=== PATIENT | female | born 1985 | race Caucasian/White ===

== ENCOUNTER 2018-07-05 05:35 | Emergency (ER) | payer OTHER ==
[~2018-07-05] VITALS: Ht 160 cm; Wt 58.5 kg
[~2018-07-05 05:35] MED LIST: ASPI-667 PO; CLIN300C8 PO; MUPI22OI2 TP; NICO-449 TP
[2018-07-05 05:54] VITALS: BP 135/83
--- NOTE | 2018-07-05 06:01 | NUR ---
DR. DR. MORA AT BEDSIDE.
[2018-07-05] MEDS ORDERED: LIDOCAINE 1% VIAL ONE (06:02)
--- NOTE | 2018-07-05 06:08 | NUR ---
I AND D I AND D AT BEDSIDE DONE BY DR. MORA.
--- NOTE | 2018-07-05 06:31 | ER.PDOC ---
General Chief Complaint: Skin Rash/Abscess Stated Complaint: POSS SPIDER BITE Time seen by MD: 06:00 Source: patient Exam Limitations: no limitations History of Present Illness Initial Comments Patient has redness/insect bite that became more swollen over 2 days. Patient drained the lesion but new abscess has formed with surrounding erythema. No fever, no chills. Timing/Duration: other (2 days) Severity: moderate Location: LUE (forearm) Quality: painful Identified Cause: possibly (spider bite) Prior symptoms/Treatment: No Similar symptoms previous, No Recenly Seen, No Treated by Doctor, No Recently Hospitalized Allergies: Coded Allergies: Penicillins (Verified Allergy, Unknown, HIVES, 08/21/15) cephalexin (Verified Allergy, Unknown, HIVES, 08/21/15) clarithromycin (Verified Allergy, Unknown, HIVES, 08/21/15) Home Meds Active Scripts Nicotine (NICOTINE PATCH) 1 Each Patch.td24, 1 PATCH TP DAILY for Smoking Cessation, #28 PATCH Prov:CHUCK ARCHER MD 08/22/15 Mupirocin (MUPIROCIN) 22 Gm Oint...g., 1 APPLIC TP TID for Skin Infection, #22 GRAM Prov:CHUCK ARCHER MD 08/22/15 Clindamycin Hcl (CLINDAMYCIN HCL) 300 Mg Capsule, 1 CAP PO TID, #21 CAP 0 Refills Prov:CHUCK ARCHER MD 08/22/15 Aspirin (ASPIRIN) 81 Mg Tab.chew, 1 TAB PO DAILY for Clot, Cancer prevention, # 30 TAB 3 Refills Prov:CHUCK ARCHER MD 08/22/15 Past Medical History Medical History: no pertinent history, other Surgical History: no surgical history LMP (females 10-50): last week Family History Significant Family History: no pertinent family hx Social History Smoking: less than 1 pack/day Alcohol Use: none Drug Use: none Constitutional: denies chills, denies fever EENTM: denies blurred vision, denies double vision Respiratory: denies cough, denies shortness of breath, denies stridor, denies wheezing Cardiovascular: denies chest pain, denies edema, denies palpitations, denies syncope Gastrointestinal: denies abdominal pain, denies nausea, denies vomiting Genitourinary: denies dysuria, denies frequency Musculoskeletal: denies back pain, denies neck pain Skin: change in color, lesions Psychiatric/Neurological: denies anxiety, denies depressed, denies emotional problems Endocrine: no symptoms reported Hematologic/Lymphatic: no symptoms reported All Other Systems: Reviewed and Negative Physical Exam General Appearance: alert, mild distress Skin: abscess, tender indurated area, with erythema Location: LUE Character: erythematous With: warmth, tenderness, swelling, induration, inflammation Extremities: non-tender, nml ROM, no edema, edema EENT: eyes nml inspection, lips/gums nml Neck: trachea midline, no swelling Respiratory: no resp. distress, breath sounds nml, respiratory distress CVS: reg. rate & rhythm, heart sounds nml Abdomen: non-tender NEURO/PSYCH: oriented x 3, CN's nml as tested, motor nml, sensation nml, mood/ affect nml Incision and Drainage Incision and Drainage : Site: Left Forearm Blade Size: 15 I & D Procedure: betadine prep, probe/break up loculation, irrigated cavity w/saline Progress Patient had incision and drainage performed. Lidocaine 1% without epinephrine used locally for anesthesia. Procedure was offered to patient as well as avoiding procedure and attempting only abx treatment of lesion. Patient chose to have procedure. Patient tolerated procedure well. Hemostatic, minimal blood loss. Minimal amount of purulent material drained. No packing required, very small lesion. Departure Time of Disposition: 06:40 Disposition: 01 HOME, SELF-CARE Impression: Primary Impression: Cellulitis and abscess of upper arm and forearm Condition: Stable Referrals: PCP,UNKNOWN (PCP) PRIMARY CARE PROVIDER Comments Complete course of abx as directed. Soak in warm soapy water 4x daily. Take ibuprofen for pain/fever. Return to care for worsening/concerning symptoms. Duration or Time Spent with Pa: 1 hour NICHOLE MORA MD Jul 05, 2018 06:31
[2018-07-05] MEDS ORDERED: TORADOL IM STA (06:33)
--- NOTE | 2018-07-05 06:33 | NUR ---
DRESSING WOUND COVERED WITH TELFA AND SECURED WITH KERLEX AND COBAN
[2018-07-05 06:43] VITALS: BP 131/92
[2018-07-05] MEDS ORDERED: TORADOL ONE (06:49)
[2018-07-05 07:10] VITALS: BP 131/92
== END 2018-07-05 07:06 | disposition home or self-care (01) ==
LOC: ER 05:35
DX: L03.112 Cellulitis of left axilla (principal); F17.210 Nicotine dependence, cigarettes, uncomplicated; Z88.0 Allergy status to penicillin; Z88.1 Allergy status to other antibiotic agents; Z79.899 Other long term (current) drug therapy
CPT/HCPCS: 10060; 96372; 99283; J1885; J2001